=== PATIENT | male | born 2000 | race Two or more races ===

== ENCOUNTER 2022-01-02 11:29 | Outpatient (CLI) | payer OTHER, SELFPAY ==
--- NOTE | ~2022-01-02 | XR_ITS ---
EXAM: XR knee LT 3V DATE: 01/02/2022 11:45 HISTORY: LEFT KNEE PAIN . COMPARISON: None available. FINDINGS: Normal mineralization. No fracture or dislocation. No lytic or blastic lesion. Joint space s are maintained. No erosion or periosteal change. Soft tissues within normal limits. IMPRESSION: Normal left knee radiograph findings. Reviewed, dictated and finalized at location K.
== END 2022-01-02 11:30 | disposition home or self-care (01) ==
LOC: ANHASCIMG 11:37
PROVIDERS: Visit Provider Orthopaedic Surgery
DX: M25.562 Pain in left knee (principal)
CPT/HCPCS: 73562